=== PATIENT | male | born 1955 | race Caucasian/White ===

== ENCOUNTER 2020-11-06 15:16 | Emergency (ER) | payer BC, SELFPAY ==
[2020-11-06 15:59] VITALS: BP 129/88; PULSE 93; RESP 18; TEMP 36.3; O2SAT 98; BMI 22.4
--- NOTE | 2020-11-06 16:44 | ED_ITS ---
HPI - Wound/Laceration General: Chief Complaint: Wound/Laceration Stated Complaint: RIGHT MIDDLE FINGER LAC Time Seen by Provider: 11/06/20 16:32 History of Present Illness: HPI narrative: Laceration to middle finger right hand cut on a piece of 10 Onset (ago): hour(s) Extremity Location: Right: hand Place: home Patient tetanus UTD: Yes Context: accidental Associated symptoms: Reports no associated symptoms; Denies chills or fever(s) Review of Systems Const: Denies: fever(s) or chills Skin/Breast: Reports: other (Laceration right middle finger have about hour and half ago) Psych: Denies: anxiety Physical Exam Const: COMMON NORMALS: no acute distress Psych: COMMON NORMALS: mental status grossly normal Skin: OTHER: Right middle finger with the 2 and half inch laceration on dorsal surface good range of motion of the finger tendons intact noncontaminated distal neurovascular intact Procedures Laceration Laceration 1: Site: hand Side (If applicable): right Size (cm): 5 Description: linear, irregular and clean Depth: simple, single layer Pre-repair: wound explored, irrigated extensively and deep structures intact Skin layer closed with: vicryl Size (cm): 4-0 Number of sutures: 5 Technique: simple, interrupted Course Vital Signs: Vital signs: Vital Signs Temperature 97.3 F L 11/06/20 15:59 Pulse Rate 93 11/06/20 15:59 Respiratory Rate 18 11/06/20 15:59 Blood Pressure 129/88 11/06/20 15:59 Pulse Oximetry 98 11/06/20 15:59 Discharge Plan Discharge Patient Disposition: Home Clinical Impression: Laceration Condition: Stable Discharge Orders: Discharge ED (Routine); Ordered 11/06/20 Ordered By: Garth Gautam Referrals: Tiana Escalante MD [Primary Care Provider] - Discharge Diet: Usual diet Discharge Activity: Resume usual activity Patient Instructions: Suture Care (ED), Laceration (ED) Activity Restrictions/Additional Instructions: Sutures out in 7 days can go to urgent care to get them removed our return here. Coding Level of Care Code ED Mechanical Facilities Technician for [facility] Morel
[2020-11-06 16:54] VITALS: BP 145/81; PULSE 87; RESP 14; O2SAT 97
== END 2020-11-06 16:54 | disposition home or self-care (01) ==
PROVIDERS: Emergency Provider Nurse Practitioner Family; PCP Internal Medicine
DX: S61.212A Laceration without foreign body of right middle finger without damage to nail, initial encounter (principal); W26.8XXA Contact with other sharp object(s), not elsewhere classified, initial encounter
CPT/HCPCS: 12002; 12345; 99281; 99282; A6446

== ENCOUNTER 2021-02-26 18:31 | Emergency (ER) | payer BC, SELFPAY ==
[2021-02-26 18:47] VITALS: BP 143/100; PULSE 87; RESP 18; TEMP 37.1; O2SAT 97; BMI 21.7
--- NOTE | 2021-02-26 19:24 | XRR_ITS ---
PROCEDURE INFORMATION: Exam: XR Right Hand Exam date and time: 02/26/2021 7:25 PM Age: 65 years old Clinical indication: Injury or trauma; Other: Cut with knife; Laceration; Hand; Right; Additional info: Laceration to right index finger TECHNIQUE: Imaging protocol: XR Right hand. Views: 3 or more views. COMPARISON: No relevant prior studies available. FINDINGS: Bones/joints: Alignment is normal. There is no acute fracture. There are healed fractures of the 4th and 5th metacarpals. Soft tissues: Visible soft tissues are unremarkable. No radiopaque foreign body. XR/XR hand RT min 3V* [id number] IMPRESSION: No acute findings.
--- NOTE | 2021-02-26 19:39 | W.ED.WOUNDLC ---
HPI - Wound/Laceration General: Chief Complaint: Wound/Laceration Stated Complaint: finger lac Time Seen by Provider: 02/26/21 19:31 History of Present Illness: HPI narrative: Patient is a 65-year-old male comes to the ED with a laceration to finger on left hand. Injury occurred just prior to arrival. Patient says he was sharpening one of his knives at home when he accidentally cut his left index finger. Patient says the names he was sharpening were clean. He also said right after laceration he cleaned out cut with hydrogen peroxide. Patient is up-to-date on his tetanus. Associated symptoms: Denies chills, fever(s), nausea or vomiting Review of Systems Const: Denies: fever(s), chills or fatigue Eyes: Denies: change in vision or eye discomfort ENMT: Denies: throat pain, odynophagia, nasal discharge or nasal congestion Card: Denies: chest pain, palpitations, edema, swelling of feet/ankles, dyspnea on exertion or orthopnea Resp: Denies: dyspnea, productive cough or non-productive cough GI: Denies: abdominal pain, nausea, vomiting, diarrhea, constipation or hematochezia : Denies: flank pain, difficulty urinating, dysuria or hematuria Musc: Denies: neck pain, back pain or extremity swelling Skin/Breast: Reports: new lesions (Laceration to right index finger.); Denies: rash Neuro: Denies: headache(s), numbness in extremities or weakness in extremities Physical Exam Const: COMMON NORMALS: no acute distress, patient oriented x3, healthy appearing and alert GENERAL APPEARANCE: cooperative and comfortable HENMT: COMMON NORMALS: normocephalic HEAD & SCALP: normocephalic MOUTH: Normal oral and palatal mucosa present THROAT: posterior oropharynx normal and uvula midline Neck/C-Spine: COMMON NORMALS: supple GENERAL: Yes normal visual inspection Resp: COMMON NORMALS: normal respiratory effort, No retractions, No use of accessory muscles and clear to auscultation bilaterally AUSCULTATION: clear to auscultation bilaterally Cardio: COMMON NORMALS: regular rate, regular rhythm, S1 normal heart sound present, S2 normal heart sound present, No gallops present (Cardio), No clicks present (Cardio), No murmurs present (Cardio) and Peripheral pulses 2+ throughout RATE: regular rate RHYTHM: regular rhythm HEART SOUNDS: S1 normal heart sound present and S2 normal heart sound present PERIPHERAL PULSES: Peripheral pulses 2+ throughout GI: COMMON NORMALS: Normal to inspection, nondistended, normoactive bowel sounds present, Soft to palpation, non-tender and no masses PALPATION: Yes Soft to palpation : COMMON NORMALS: Yes no CVA tenderness BLADDER/KIDNEY EXAM: Yes no CVA tenderness Back/Pelvis: COMMON NORMALS: no CVA tenderness Extremity: NARRATIVE EXTREMITY EXAM: Left hand?patient has 2.5 cm linear superficial laceration over dorsal aspect of fifth digit MCP joint. No active bleeding seen. Patient has full range of motion in fingers and neurovascular intact. GENERAL: Yes normal exam except as noted Neuro: COMMON NORMALS: patient oriented x3 and moves all extremities SENSORIUM/ORIENTATION: Yes alert Skin: NARRATIVE SKIN EXAM: Left hand?patient has 2.5 cm linear superficial laceration over dorsal aspect of fifth digit MCP joint. No active bleeding seen. Patient has full range of motion in fingers and neurovascular intact. GENERAL SKIN EXAM: dry skin Procedures Laceration Laceration 1: Site: hand (left hand-laceration just over knuckle of index finger) Side (If applicable): left Size (cm): 2.5 Description: linear and clean Depth: simple, single layer Local Anesthetic: lidocaine 1% Amount of anesthesia used (mL): 10 Pre-repair: irrigated extensively (With normal saline and skin cleaned with alcohol swab.) Skin layer closed with: nylon Size (cm): 4-0 Number of sutures: 6 Technique: simple, interrupted Course Vital Signs: Vital signs: Vital Signs Temperature 98.7 F 02/26/21 18:47 Pulse Rate 88 02/26/21 20:29 Respiratory Rate 16 02/26/21 20:29 Blood Pressure 143/100 02/26/21 18:47 Pulse Oximetry 96 02/26/21 20:29 MDM - Wound/Laceration MDM Narrative: Medical decision making narrative: Patient is 65-year-old male comes to the ED with laceration on left hand. Laceration is 2.5 cm in length is superficial and on the dorsal aspect of left hand over second digit MCP joint. Patient has full range of motion in fingers and is neurovascular intact. X-ray of left hand shows no acute fractures or findings. Laceration was irrigated extensively with normal saline and cleaned with alcohol swab. Lidocaine 1% was used as local and 6 sutures used to close laceration. Patient discharged home and told to follow-up with PCP in 7 to 10 days to have sutures removed. Patient was instructed on how to care for laceration site. Return to ED precautions given. Patient understood agree with plan. Imaging Data^: Xray Ortho: Attestation: I personally reviewed and interpreted this imaging study as follows: Radiologist's impression: [address] [address] XRay Report Signed Patient: Tu Charles Unit #: [id number] : 1955 Age/Sex: 65 / M ADM Date: 02/26/21 Loc: ER Room/Bed: Attending Dr: Ordering Provider/Ordering MD: Negro Solares Date of Service: 02/26/21 Procedure(s): XR hand RT min 3V* [id number] Accession Number(s): [id number] Report Number: [id number] PROCEDURE INFORMATION: Exam: XR Right Hand Exam date and time: 02/26/2021 7:25 PM Age: 65 years old Clinical indication: Injury or trauma; Other: Cut with knife; Laceration; Hand; Right; Additional info: Laceration to right index finger TECHNIQUE: Imaging protocol: XR Right hand. Views: 3 or more views. COMPARISON: No relevant prior studies available. FINDINGS: Bones/joints: Alignment is normal. There is no acute fracture. There are healed fractures of the 4th and 5th metacarpals. Soft tissues: Visible soft tissues are unremarkable. No radiopaque foreign body. XR/XR hand RT min 3V* [id number] IMPRESSION: No acute findings. Dictated By: North Meza MD Signed By: North Meza MD Signed Date/Time: 02/26/212048 DD/ 47 Discharge Plan Discharge Patient Disposition: Home Clinical Impression: Laceration Condition: Stable Discharge Orders: Discharge ED (Routine); Ordered 02/26/21 Ordered By: Negro Solares Referrals: Tiana Escalante MD [Primary Care Provider] - Discharge Diet: Regular Discharge Activity: Limit activity as instructed Patient Instructions: Suture Care (ED), Laceration (ED) Activity Restrictions/Additional Instructions: Keep laceration site clean and dry for the next 48 hours. Wear finger splint for the next 2 to 3 days to avoid bending finger to allow for skin to heal. After 2 to 3 days you can take the splint off a finger and start bending your finger again. Then after that you can clean and re-bandage daily. Watch for signs of infection such as redness, warmth, increased tenderness and puslike drainage. If you see the signs of infection return to the ED, urgent care or PCP for reevaluation. call your PCP to schedule a follow-up appointment for reevaluation and suture removal in about 10 days. Continue taking all home meds. Follow discharge plans as discussed. You can return to the ED if symptoms worsen. Coding Level of Care Code ED [employer] Internship for [facility] Exam Comprehensive
[2021-02-26] MEDS: lidocaine 1% INJ 20 mL INTRADERMA (20:00)
[2021-02-26 20:29] VITALS: PULSE 88; RESP 16; O2SAT 96
== END 2021-02-26 20:31 | disposition home or self-care (01) ==
PROVIDERS: Emergency Provider Physician Assistant; PCP Internal Medicine
DX: S61.211A Laceration without foreign body of left index finger without damage to nail, initial encounter (principal); W26.0XXA Contact with knife, initial encounter
CPT/HCPCS: 12001; 73130; 96372; 99282